=== PATIENT | male | born 1975 | race Hispanic/Latino ===

== ENCOUNTER 2019-10-16 09:03 | Emergency (ER) | payer OTHER ==
[~2019-10-16] VITALS: Ht 167.6 cm; Wt 67.1 kg
[2019-10-16] MEDS ORDERED: SODIUM CHLORIDE 0.9% 1000ML 1,000 ML IV STA (09:10)
[2019-10-16] MEDS ORDERED: ONDANSETRON HCL INJ 2MG/ML 2ML 2 MG/ML VIAL IV STA (09:10)
--- NOTE | 2019-10-16 09:13 | NUR ---
called [facility] for emergent transfer
--- NOTE | 2019-10-16 09:17 | Emergency Department Note ---
History of Present Illnes History of Present Illness Chief Complaint: General Medicine Complaints History of Present Illness This is a 44 year old male who was using a internal grinder and the grinding wheel broke into pieces hitting his face and left hand, says he was wearing dust mask P100 and goggles, cannot see out of right eye. No LOC, no neck pain. Historian: Patient, Family Member, Friend Arrival Mode: Car [employer] Operator Required: No Onset (how long ago): minute(s) (20 mins ago) Location: face, left hand Quality: pain Radiation: non-radiation Severity: severe Onset quality: sudden Timing of current episode: constant Progression: unchanged Chronicity: new Context: recent illness Relieving factors: none Exacerbating factors: none Associated symptoms: denies other symptoms Treatments prior to arrival: none Past Medical/Family History Physician Review I have reviewed the patient's past medical and family history. Any updates have been documented here. Past Medical History Recent Fever: No Clinical Suspicion of Infectio: No New/Unexplained Change in Ment: No Past Medical History: None Past Surgical History: None Social History Smoking Cessation: Current every day smoker Counseling Performed: No Alcohol Use: Social Any Illegal Drug Use: No TB Exposure/Symptoms: No Physically hurt or threatened: No Family History Family history of heart diseas: No Other Last Tetanus: unk by pt Any Pre-Existing Lines (PICC,: No Is patient up to date on immun: No Review of Systems Review of Systems Constitutional: no symptoms EENTM: as per HPI, eye pain, nose pain, other (no vision right eye) Cardiovascular: no symptoms Respiratory: no symptoms Gastrointestinal: no symptoms Genitourinary: no symptoms Musculoskeletal: other (pain left hand) Neurological: no symptoms Psychological: no symptoms Endocrine: no symptoms Hematological/Lymphatic: no symptoms Review of other systems All other systems reviewed and negative. Physical Exam Related Data Allergies: Coded Allergies: No Known Allergies (Unverified , 10/16/19) Triage Vital Signs Vital Signs Date Time Temp Pulse Resp B/P (MAP) Pulse Ox O2 Delivery O2 Flow Rate FiO2 10/16/19 09:07 98.4 104 16 178/83 100 Vital signs reviewed: Yes Physical Exam CONSTITUTIONAL Constitutional: well-developed, well-nourished HENT HENT: normocephalic, oropharynx clear/moist, other (right upper eyelid laceration with ? small avulsion, right globe with ? laceration, bleeding from unclear source and unable to see pupil reaction but appears to have globe injury. Stellate lacerations to nose) HENT L/R: left ext ear normal, right ext ear normal EYES Eyes: EOM normal NECK Neck: ROM normal, supple, other (no midline tenderness) PULMONARY Pulmonary: effort normal, breath sounds normal CARDIOVASCULAR Cardiovascular: regular rhythm, heart sounds normal, capillary refill normal, normal rate GASTROINTESTINAL Abdominal: soft, nontender, bowel sounds normal GENITOURINARY Genitourinary: exam deferred SKIN Skin: warm, other (small 1 cm superficial laceration overlying PIP dorsum of left 5th (small) finger, abrasion to left 4th finger MCP with swelling of finger, abrasions to left medial thigh) MUSCULOSKELETAL Musculoskeletal: ROM normal NEUROLOGICAL Neurological: alert, oriented x 3, no gross motor or sensory deficits PSYCHOLOGICAL Psychological: mood/affect normal, judgement normal Results Laboratory Lab results reviewed: No Imaging Imaging results reviewed: No Diagnostics Tests Diagnostic test(s) reviewed: No Critical Care Time Subsequent provider I assumed direction of critical care for this patient from another provider of my specialty. Assessment & Plan Reassessment Reassessment facial trauma with complicated laceration to nose, trauma to right eye with ? open globe vs FB and upper lid laceration - CT face and orbit to eval facial fx's, open globe vs FB which are currently pending. After exam we immediately initiated transfer to trauma facility. Accepting MD at [facility] is Dr Toma Hutchinson Assessment & Plan Final Impression: (1) Facial trauma (2) Traumatic injury of globe of right eye Assessment & Plan transfer Last Vital Signs Date Time Temp Pulse Resp B/P (MAP) Pulse Ox O2 Delivery O2 Flow Rate FiO2 10/16/19 09:07 98.4 104 16 178/83 100 Medications in the ED Morphine Sulfate 4 mg ONCE STAT IV ; Start 10/16/19 at 09:10; Stop 10/16/19 at 09:11; Status UNV Ondansetron HCl 4 mg ONCE STAT IV ; Start 10/16/19 at 09:10; Stop 10/16/19 at 09:11; Status UNV Sodium Chloride 1,000 ml @ 0 mls/hr Q0M STAT IV ; Start 10/16/19 at 09:10; Sto p 10/16/19 at 09:11 KRISTAN SPEARS MD October 16, 2019 09:17
[2019-10-16 09:23] LABS: BASOPHILS # (AUTO) 0.1 (0.0-0.1); BASOPHILS % 0.6 % (0.0-1.0); EOSINOPHILS # (AUTO) 0.4 (0.0-0.4); EOSINOPHILS % 2.9 % (0.0-6.0); HEMOGLOBIN 15.9 g/dL (14.0-18.0); LYMPHOCYTES # (AUTO) 4.5 (1.0-3.2); LYMPHOCYTES % 32.7 % (18.0-39.1); MEAN CORPUSCULAR HEMOGLOBIN 29.6 pg (28-32); MEAN CORPUSCULAR HGB CONC 33.8 g/dL (31-35); MEAN CORPUSCULAR VOLUME 87.5 fL (81-99); MONOCYTES # (AUTO) 0.7 (0.2-0.8); MONOCYTES % 5.1 % (4.4-11.3); NEUTROPHILS % 57.5 % (38.7-80.0); PLATELET COUNT 404 x10e3/uL (140-360); RED BLOOD COUNT 5.37 x10e6/uL (4.3-5.7); RED CELL DISTRIBUTION WIDTH 14.6 % (11.7-14.4)
[2019-10-16] MEDS ORDERED: MORPHINE SULFATE INJ 4 MG/ML INJ 1ML IV STA (09:27)
[2019-10-16] MEDS ORDERED: TETANUS/DIPHTHERIA TOX ADULT 0.5 ML SYR IM ONE (09:30)
[2019-10-16 09:52] LABS: INR 0.79; PARTIAL THROMBOPLASTIN TIME 23.9 seconds (23.8-35.5); PROTHROMBIN TIME 11.4 seconds (11.9-14.5)
--- NOTE | 2019-10-16 09:53 | NUR ---
report to ems. awaiting ct disc and offical radiology read
[2019-10-16 09:58] LABS: ALANINE AMINOTRANSFERASE 30 IU/L (0-55); ALBUMIN 3.9 g/dL (3.5-5.0); ALBUMIN/GLOBULIN RATIO 1.1 (0.8-2.0); ALKALINE PHOSPHATASE 91 IU/L (40-150); ANION GAP 16.4 mmol/L (8-16); BLOOD UREA NITROGEN 16 mg/dL (7-26); BUN/CREATININE RATIO 19 (6-25); CALCIUM 8.5 mg/dL (8.4-10.2); CARBON DIOXIDE 20 mmol/L (22-29); CHLORIDE 107 mmol/L (98-107); CREATININE, SERUM 0.86 mg/dL (0.72-1.25); EST GLOMERULAR FILTRATION RATE > 60 ML/MIN (60-); GLUCOSE 163 mg/dL (74-118); POTASSIUM 3.4 mmol/L (3.5-5.1); SODIUM 140 mmol/L (136-145)
[2019-10-16] MEDS ORDERED: CEFTRIAXONE SOD 1 GM/NS 50 ML 50 ML IV ONE (10:00)
[2019-10-16] MEDS ORDERED: VANCOMYCIN 1GM/NS 250 ML 250 ML ONE (10:02)
--- NOTE | 2019-10-16 10:16 | Diagnostic Imaging Report ---
Examination: CT Orbits and Face without Contrast History:Face trauma Comparison studies:None Technique: Axial images were obtained through the orbits without contrast. Coronal and sagittal images reconstructed from the axial data. Dose modulation, iterative reconstruction, and/or weight based adjustment of the mA/kV was utilized to reduce the radiation dose to as low as reasonably achievable. Intravenous contrast: None. Findings: Globes: Elongated right globe with hyperdensity/ hemorrhage within the vitreal cavity and absent lens. Intact on the left. The anterior and posterior chambers are clear on the left. The left lens is well visualized. Optic nerves: Normal in size and symmetric. Extraocular muscles: Normal in size and symmetric. Intraconal abnormalities: None. Bones: Acute comminuted fractures of the right zygomatic arch, anterior, medial and lateral her of the right maxillary sinus, right orbital floor involves the inferior orbital foramen, right lamina papyracea, bilateral frontonasal processes, and bilateral nasal bones. The pterygoid plates are intact. Sinuses: Hemorrhagic opacification of the right maxillary sinus and ethmoid air cells. Soft tissues: Right periorbital, premalar and perinasal soft tissue hematoma and superficial and extraconal right orbital emphysema. IMPRESSION: Acute comminuted right face fractures with ruptured right globe and soft issue hematoma and superificial and right extraconal emphysema as detailed above. Signed by: Dr. Catrachita Barone M.D. on 10/16/2019 10:13 AM
[2019-10-16] MEDS ORDERED: VANCOMYCIN 1GM/NS 250 ML 250 ML IV ONE (10:30)
== END 2019-10-16 10:02 | disposition other institution (70) ==
LOC: ER 09:03 → EDBD 09:03 → ER 10:02
DX: S05.91XA Unspecified injury of right eye and orbit, initial encounter (principal); S60.512A Abrasion of left hand, initial encounter; S70.312A Abrasion, left thigh, initial encounter; W20.8XXA Other cause of strike by thrown, projected or falling object, initial encounter; F17.210 Nicotine dependence, cigarettes, uncomplicated
CPT/HCPCS: 36415; 70480; 70486; 80053; 85025; 85610; 85730; 90471; 90714; 99284; J0696; J2270; J2405; J3370; J7030

== ENCOUNTER 2024-11-08 12:31 | Emergency (ER) | payer SELFPAY ==
[~2024-11-08] VITALS: Ht 167.6 cm; Wt 67.6 kg
[~2024-11-08 12:31] MED LIST: ASPIRIN EC81 MG PO; ATORVASTATIN CA40 MG PO; LOPRESSOR25 MG PO; METFORMIN HCL500 MG PO; MULTIVITAMINS1 EAC8 PO; ONDANSETRON ODT4 MG PO
[2024-11-08 13:24] VITALS: TEMP 97.8
[2024-11-08 13:42] VITALS: PULSE 85; RESP 20; O2SAT 96
[2024-11-08] MEDS ORDERED: SODIUM CHLORIDE FLUSH 10 ML SYR IV PRN (13:45)
[2024-11-08 14:04] LABS: BASOPHILS # (AUTO) 0.1 (0.0-0.1); BASOPHILS % 0.5 % (0.0-1.0); EOSINOPHILS # (AUTO) 0.1 (0.0-0.4); EOSINOPHILS % 0.4 % (0.0-6.0); HEMATOCRIT 47.3 % (38.2-49.6); HEMOGLOBIN 15.9 g/dL (14.0-18.0); LYMPHOCYTES # (AUTO) 2.7 (1.0-3.2); LYMPHOCYTES % 23.3 % (18.0-39.1); MEAN CORPUSCULAR HEMOGLOBIN 29.3 pg (28-32); MEAN CORPUSCULAR HGB CONC 33.6 g/dL (31-35); MEAN CORPUSCULAR VOLUME 87.1 fL (81-99); MONOCYTES # (AUTO) 0.6 (0.2-0.8); MONOCYTES % 5.1 % (4.4-11.3); NEUTROPHILS # (AUTO) 8.2 (2.1-6.9); NEUTROPHILS % 70.2 % (38.7-80.0); PLATELET COUNT 479 x10e3/uL (140-360); RED BLOOD COUNT 5.43 x10e6/uL (4.3-5.7); WHITE BLOOD COUNT 11.61 x10e3/uL (4.8-10.8)
[2024-11-08 14:13] LABS: INR 0.82; PROTHROMBIN TIME 12.1 seconds (11.9-14.5)
[2024-11-08 14:14] LABS: PARTIAL THROMBOPLASTIN TIME 26.4 seconds (23.8-35.5)
[2024-11-08 14:19] LABS: ALBUMIN 3.8 g/dL (3.5-5.0); ANION GAP 15.8 mmol/L (8-16); BILIRUBIN,TOTAL 0.4 mg/dL (0.2-1.2); CALCIUM 9.2 mg/dL (8.4-10.2); CREATININE, SERUM 0.78 mg/dL (0.72-1.25); POTASSIUM 3.8 mmol/L (3.5-5.1); TOTAL PROTEIN 7.5 g/dL (6.5-8.1)
[2024-11-08 14:25] LABS: TROPONIN I 0.002 ng/mL (0-0.300)
[2024-11-08 15:06] LABS: BILIRUBIN,URINE NEGATIVE (NEGATIVE); CLARITY,URINE CLEAR (CLEAR); COLOR,URINE YELLOW (YELLOW); GLUCOSE, URINE NEGATIVE (NEGATIVE); KETONES,URINE NEGATIVE (NEGATIVE); LEUKOCYTE ESTERASE ,URINE NEGATIVE (NEGATIVE); NITRITE,URINE NEGATIVE (NEGATIVE); PH,URINE 6 (5 - 7); PROTEIN,URINE DIPSTICK NEGATIVE (NEGATIVE); URINE UROBILINOGEN 0.2 mg/dL (0.2 - 1)
[2024-11-08 15:20] VITALS: PULSE 68; RESP 17; O2SAT 98
[2024-11-08] MEDS ORDERED: SODIUM CHLORIDE 0.9% 100 ML ONE (15:44)
[2024-11-08] MEDS ORDERED: IOPAMIDOL 370 MG/ML 100 ML INFUS..BTL INJ ONE (15:44)
== END 2024-11-08 17:45 | disposition other institution (70) ==
LOC: ER 13:44
DX: R53.1 Weakness (principal); I63.89 Other cerebral infarction; I66.9 Occlusion and stenosis of unspecified cerebral artery; G40.909 Epilepsy, unspecified, not intractable, without status epilepticus
CPT/HCPCS: 36415; 70450; 70496; 70498; 71045; 80053; 81001; 83880; 84484; 85025; 85610; 85730; 94799; 99284; J7050; Q9967